=== PATIENT | female | born 1940 | race Asian ===

== ENCOUNTER 2017-02-19 11:41 | Inpatient (IN) | payer OTHER, BC ==
[~2017-02-19] VITALS: Ht 157.5 cm; Wt 66.5 kg
[2017-02-19 12:59] LABS: BASOPHIL % 0.3 % (0-2); RED CELL DISTRIBUTION WIDTH 14.3 % (11.5-14.5)
[2017-02-19 13:00] LABS: PLATELET COUNT 129 x10^3mcL (130-400)
[2017-02-19 13:09] LABS: CALCIUM 9.1 mg/dL (8.5-10.1); CARBON DIOXIDE 31.5 mmol/L (21-32); CHLORIDE SERUM 104 mmol/L (98-107); GLUCOSE SERUM 143 mg/dL (74-106); POTASSIUM SERUM 4.3 mmol/L (3.5-5.1); SODIUM SERUM 140 mmol/L (136-145)
[2017-02-19 13:14] LABS: ALBUMIN 3.4 g/dL (3.4-5.0); ALKALINE PHOSPHATASE 61 U/L (46-116); ALT/SGPT 47 U/L (14-59); AST/SGOT 34 U/L (15-37); BILIRUBIN TOTAL 0.6 mg/dL (0.20-1.00); TOTAL PROTEIN, SERUM 7.1 g/dL (6.4-8.2)
[2017-02-19 14:00] LABS: microscopic required? YES; urine erythrocyte NEGATIVE (NEGATIVE)
[2017-02-19 16:34] LABS: CHOLESTEROL/HDL RATIO 2.7; MAGNESIUM 2.3 mg/dL (1.8-2.4); PHOSPHOROUS 3.8 mg/dL (2.5-4.9)
[2017-02-19 16:45] LABS: FREE T4 1.2 ng/dL (0.76-1.46); FREE THYROXINE INDEX 2.8 ug/dL (1.4-4.5); T4(THYROXINE) 7.9 ug/dL (4.7-13.3)
[2017-02-19 17:31] LABS: T3 TOTAL 0.86 ng/mL
[2017-02-19 17:59] VITALS: BP 124/64
[2017-02-19] MEDS ORDERED: LAMISIL250 MG PO (19:54)
[2017-02-19] MEDS ORDERED: PROPRANOLOL HCL10 MG PO (19:55)
[2017-02-19] MEDS ORDERED: XARELTO10 M1 PO (19:56)
[2017-02-19] MEDS ORDERED: GABAPENTIN100 M2 PO (19:56)
[2017-02-19] MEDS ORDERED: MELOXICAM15 M1 PO (19:57)
[2017-02-19 21:26] VITALS: BP 117/67
[2017-02-20 06:16] VITALS: BP 114/48
[2017-02-20 06:17] LABS: BASOPHIL % 0.3 % (0-2); RED CELL DISTRIBUTION WIDTH 14.4 % (11.5-14.5)
[2017-02-20 06:48] LABS: PLATELET COUNT 109 x10^3mcL (130-400)
[2017-02-20 06:55] LABS: CALCIUM 8.6 mg/dL (8.5-10.1); CARBON DIOXIDE 25.9 mmol/L (21-32); CHLORIDE SERUM 106 mmol/L (98-107); GLUCOSE SERUM 96 mg/dL (74-106); MAGNESIUM 2.1 mg/dL (1.8-2.4); PHOSPHOROUS 4.1 mg/dL (2.5-4.9); POTASSIUM SERUM 4.7 mmol/L (3.5-5.1); SODIUM SERUM 144 mmol/L (136-145)
[2017-02-20 10:28] VITALS: BP 117/65
[2017-02-20 17:42] VITALS: BP 114/52
[2017-02-20 22:33] VITALS: BP 124/64
[2017-02-21 06:59] VITALS: BP 114/58
[2017-02-21 09:03] VITALS: BP 151/61
[2017-02-21] MEDS ORDERED: MECLIZINE HYDRO25 M1 PO ×2 (12:27→12:30)
[2017-02-21 12:35] VITALS: BP 151/61
[2017-02-21] MEDS ORDERED: PROPRANOLOL HCL10 MG PO (13:13)
== END 2017-02-21 14:35 | disposition home or self-care (01) | DRG 308 ==
LOC: ED 11:41 → DU 14:27
PROVIDERS: Emergency Medicine; ADMIT Family Medicine
DX: R00.1 Bradycardia, unspecified (principal); N17.0 Acute kidney failure with tubular necrosis; N39.0 Urinary tract infection, site not specified; D68.69 Other thrombophilia; E11.59 Type 2 diabetes mellitus with other circulatory complications; E11.65 Type 2 diabetes mellitus with hyperglycemia; I48.2 Chronic atrial fibrillation; E04.2 Nontoxic multinodular goiter; I73.9 Peripheral vascular disease, unspecified; D64.9 Anemia, unspecified; E78.5 Hyperlipidemia, unspecified; Z68.26 Body mass index [BMI] 26.0-26.9, adult; Z79.01 Long term (current) use of anticoagulants
CPT/HCPCS: 83880; 84439; J0696; J2405; J7030; J8597; Q0092